=== PATIENT | male | born 1985 | race Caucasian/White ===

== ENCOUNTER 2016-04-20 10:54 | Emergency (ER) | payer OTHER ==
[2016-04-20 11:06] VITALS: BP 147/86; PULSE 87; RESP 20; TEMP 98.2
[2016-04-20] MEDS ORDERED: predniSONE 20 MG TAB PO STA (11:58)
--- NOTE | 2016-04-20 11:58 | ED ---
General Adult HPI - General Chief complaint: Extremity Problem,Nontraumatic Stated complaint: Rt shoulder pain Time Seen by Provider: 04/20/16 11:20 Source: patient, RN notes reviewed, old records reviewed Mode of arrival: ambulatory Limitations: no limitations - History of Present Illness Initial comments: This is a 22-year-old male the ER for evaluation of right shoulder pain, right shoulder pain and tingling, numbness and right arm. Patient has no symptoms of medical history, anterior injury since high school. Patient states he is having some numbness and tingling in his fingers, no loss of strength, no new injuries. No new trauma. Patient states symptoms are worse with activity worse with movement. No modifying factors for improvement - Related Data Home Medications Medication Instructions Recorded Confirmed Dextroamphetamine/Amphetamine 30 mg PO BID 04/20/16 04/20/16 [Adderall] Allergies Allergy/AdvReac Type Severity Reaction Status Date / Time No Known Allergies Allergy Verified 04/20/16 11:06 Review of Systems ROS Statement: Those systems with pertinent positive or pertinent negative responses have been documented in the HPI. ROS Other: All systems not noted in ROS Statement are negative. Past Medical History Past Medical History: No Reported History History of Any Multi-Drug Resistant Organisms: None Reported Past Surgical History: Adenoidectomy, Tonsillectomy Past Psychological History: ADD/ADHD Smoking Status: Never smoker Past Alcohol Use History: None Reported Past Drug Use History: None Reported General Exam - General Exam Comments Initial Comments: No neurological deficits found right shoulder Limitations: no limitations General appearance: alert, in no apparent distress Head exam: Present: atraumatic, normocephalic, normal inspection Eye exam: Present: normal appearance, PERRL, EOMI. Absent: scleral icterus, conjunctival injection, periorbital swelling ENT exam: Present: normal exam, mucous membranes moist Neck exam: Present: normal inspection. Absent: tenderness, meningismus, lymphadenopathy Respiratory exam: Present: normal lung sounds bilaterally. Absent: respiratory distress, wheezes, rales, rhonchi, stridor Cardiovascular Exam: Present: regular rate, normal rhythm, normal heart sounds. Absent: systolic murmur, diastolic murmur, rubs, gallop, clicks GI/Abdominal exam: Present: soft, normal bowel sounds. Absent: distended, tenderness, guarding, rebound, rigid Extremities exam: Present: normal inspection, full ROM, normal capillary refill. Absent: tenderness, pedal edema, joint swelling, calf tenderness Back exam: Present: normal inspection Neurological exam: Present: alert, oriented X3, CN II-XII intact Psychiatric exam: Present: normal affect, normal mood Skin exam: Present: warm, dry, intact, normal color. Absent: rash Course Vital Signs 04/20/16 11:04 Temperature 98.2 F Pulse Rate 87 Respiratory 20 Rate Blood Pressure 147/86 O2 Sat by Pulse 99 Oximetry Medical Decision Making - Medical Decision Making 30 male the ER with recurrent shoulder pain, numbness tingling and finger. No specific neurological deficit found, patient will be discharged home on anti- inflammatories and follow up with orthopedics Disposition Clinical Impression: Right shoulder strain, Pinched nerve in shoulder Disposition: HOME SELF-CARE Condition: Good Instructions: Thoracic Outlet Syndrome (ED), Shoulder Sprain (ED) Referrals: Mark Antonio DO [Doctor of Osteopathic Medicine] - 1-2 days
== END 2016-04-20 12:10 | disposition home or self-care (01) ==
LOC: EC 10:54
DX: S46.911A Strain of unspecified muscle, fascia and tendon at shoulder and upper arm level, right arm, initial encounter (principal); G58.9 Mononeuropathy, unspecified; X58.XXXA Exposure to other specified factors, initial encounter; F90.9 Attention-deficit hyperactivity disorder, unspecified type; Z79.899 Other long term (current) drug therapy
CPT/HCPCS: 99283; J7512